=== PATIENT | male | born 1990 | race Hispanic/Latino ===

== ENCOUNTER 2020-10-15 11:20 | Outpatient (RCR) | payer OTHER | END 2020-11-04 | LOC: M ST 11:20 | PROVIDERS: ATTEND Nurse Practitioner Psychiatric/Mental Health | DX: F98.5 Adult onset fluency disorder (principal) ==

== ENCOUNTER 2020-11-15 10:30 | Outpatient (RCR) | payer OTHER | END 2020-12-05 | LOC: M ST 10:30 | PROVIDERS: ATTEND Nurse Practitioner Psychiatric/Mental Health | DX: F98.5 Adult onset fluency disorder (principal) ==